=== PATIENT | male | born 1995 | race African-American/Black ===

== ENCOUNTER 2019-11-13 23:45 | Emergency (ER) | payer BC, SELFPAY ==
--- NOTE | ~2019-11-13 | XR_ITS ---
EXAMINATION: XR chest 2V DATE: 11/14/2019 00:19 INDICATION: Midline chest pain TECHNIQUE: PA and lateral views of the chest were obtained. COMPARISON: Chest radiograph dated 07/18/2016 FINDINGS: The lungs remain clear with no focal airspace opacities, pulmonary edema, pleural effusion or pneumot horax. The cardiomediastinal silhouette is normal. Visualized bones and soft tissues are unremarkable . IMPRESSION: 1. Normal chest radiograph. Reviewed, dictated and finalized at location A. IMPRESSION: 1. Normal chest radiograph.
[2019-11-13 23:49] VITALS: BP 159/89; PULSE 100; RESP 25; TEMP 37; O2SAT 100
--- NOTE | 2019-11-13 23:52 | ECG_ITS ---
Measurements Intervals [place] Rate: 85 P: 66 NV: 149 QRS: 73 QRSD: 83 T: 37 QT: 334 QTc: 397 Interpretive Statements SINUS RHYTHM VENTRICULAR PREMATURE COMPLEXES ABNORMAL ECG Electronically Signed On 11-14-2019 7:04:37 CDT by Skip Carpenter D.O.
[2019-11-13 23:56] VITALS: PULSE 82
[2019-11-14 00:13] LABS: Basophils Percent Auto 0.5 % (0.2-1.2); Eosinophils Absolute Auto 0.1 K/mm3 (0-0.3); Eosinophils Percent Auto 2.3 % (0-4.4); Hematocrit 45.9 % (42.0-52.0); Hemoglobin 15.3 g/dL (14.0-18.0); Immature Granulocyte Absolute 0.02 K/mm3 (0.00-0.031); Immature Granulocyte Percent A 0.3 % (0-0.5); Lymphocytes Percent Auto 41.9 % (18.3-44.2); Mean Corpuscular HGB Conc 33.3 g/dl (32-36); Mean Corpuscular Hemoglobin 29.1 pg (26-34); Mean Corpuscular Volume 87.3 fl (80-100); Mean Platelet Volume 12.1 fl (7.4-10.4); Monocytes Absolute Auto 0.5 K/mm3 (0.1-0.6); Monocytes Percent Auto 8.5 % (2.6-8.5); Neutrophils Absolute Auto 2.9 K/mm3 (1.3-6.7); Neutrophils Percent Auto 46.5 % (45.5-73.1); Platelet Count Result 237 k/mm3 (150-375); Red Blood Count 5.26 M/mm3 (4.6-6.20); Red Cell Distribution Width 13.4 % (11.5-14.5); White Blood Count 6.2 K/mm3 (4.5-10.0)
--- NOTE | 2019-11-14 00:22 | ED.CHESTPAIN ---
HPI - Chest Pain General Chief Complaint: Chest Pain Stated Complaint: CP Time Seen by Provider: 11/14/19 00:08 History of Present Illness HPI narrative: Patient presents via personal car for midsternal chest pain. Started today. He says he can feel extra beats. He denies reflux or asthma. He has had no wheezing or shortness of breath. He is in the [employer] and works out regularly. He said his chest hurts from working out. He does not smoke drink or do drugs, but he does dip tobacco. His surgeries include circumcision and oral surgery. He does not take any prescription medication He just finished college with a criminal justice degree. 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 And is part of the [employer]. MD complaint: chest pain Pertinent past history: other (No asthma or reflux.) Onset (ago): hour(s) Timing of current episode: episodic Prior episodes: No Onset: during rest Related Data Allergies Allergy/AdvReac Type Severity Reaction Status Date / Time No Known Allergies Allergy Unverified 08/29/17 20:46 Review of Systems Review of Systems: Narrative: CONSTITUTIONAL: Denies fever, chills, or sweats. EYES: Denies visual changes, redness, or discharge. ENT: Denies rhinorrhea, congestion, sore throat, or otalgia. CARDIOVASCULAR: He has chest pain, and palpitations, but not edema. RESPIRATORY: Denies cough or dyspnea. GASTROINTESTINAL: Denies abdominal pain, nausea, vomiting, or diarrhea. GENITOURINARY: Denies dysuria or hematuria. SKIN: Denies rash or itching. MUSCULOSKELETAL: Denies back pain, joint pain, or myalgia. NEUROLOGIC: Denies headache, numbness, or weakness. PSYCHIATRIC: Denies anxiety or depression. [facility] Past Medical History Medical History (Updated 11/14/19 @ 00:50 by Emani Bermudez MD) Chest pain Palpitations Surgical History Surgical History (Updated 11/14/19 @ 00:25 by Emani Bermudez MD) History of circumcision History of oral surgery Social History Social History (Updated 11/14/19 @ 00:25 by Emani Bermudez MD) Tobacco type: smokeless tobacco Alcohol intake: never Substance use: never Gender identity (if verbalized by the patient): Male Exam Narrative: Exam Narrative: GENERAL: Well-appearing, well-nourished, and in no acute distress. Charming and well muscled. HEAD: Normocephalic, atraumatic. EYES: PERRLA and EOMI. ENT: Nares clear, no rhinorrhea or epistaxis. Mucous membranes moist. NECK: Supple. CHEST: Clear to auscultation. No respiratory distress. Scant tenderness on palpitation at the sternal border. HEART: Regular rate and rhythm. No murmur heard. Normal peripheral pulses. ABDOMEN: Soft, nontender, nondistended, normal active bowel sounds. EXTREMITIES: Normal range of motion. No edema. SKIN: Warm, dry, no rash. NEURO: No focal deficits. Alert and oriented x3. PSYCH: Normal mood and affect. Course Reevaluation(s) Reevaluation #1: Give the patient a copy of his EKG with the premature supraventricular contractions. While in the room he had several pauses on the bulk gas specialist. He already has an appointment with a spiral binder that he does not know the name of. So I told him that if we do not find anything serious tonight I will refer him also to 1 of our spiral binder to see who can get in with first. He may need a Holter monitor or to see an electro fashion stylist. Told him to stop doing the dipping of the tobacco product. He was on supplements when he was working out but is no longer taking those. He does not take any allergy medicine. Date: 11/14/19 Time: 00:36 Vital Signs Vital signs: Vital Signs Temperature 98.6 F 11/13/19 23:49 Pulse Rate 100 11/13/19 23:49 Respiratory Rate 25 H 11/13/19 23:49 Blood Pressure 159/89 H 11/13/19 23:49 Pulse Oximetry 100 11/13/19 23:49 Temperature 98.6 F 11/13/19 23:49 Pulse Rate 82 11/13/19 23:56 Respiratory Rate 25 H 11/13/19 23:49 Blood Pressure 159/89 H 11/13/19 23:49 Pulse Oximetry 100
[2019-11-14 00:23] LABS: INR 0.9; Prothrombin Time 12.1 Seconds (11.1-14.7)
[2019-11-14 00:24] LABS: Partial Thromboplastin Time 25.9 SECONDS (22.3-36.8)
[2019-11-14 00:25] LABS: Blood Urea Nitrogen 11 mg/dL (9-20); Calcium 9.3 mg/dL (8.4-10.2); Carbon Dioxide 29 mmol/L (22-30); Chloride 102 mmol/L (98-107); Estimated CRCL calculation 97 ml/min; Estimated Glomerular Filt Rate > 60; Glucose 95 mg/dL (75-110); Potassium 3.9 mmol/L (3.4-5.0); Sodium 138 mmol/L (137-145)
[2019-11-14 00:36] LABS: Troponin I < 0.012 ng/mL (0.000-0.034)
[2019-11-14 00:55] VITALS: BP 144/84; PULSE 81; RESP 18; O2SAT 100
== END 2019-11-14 00:55 | disposition home or self-care (01) ==
LOC: ANHED 11-14 00:51
PROVIDERS: Emergency Provider Emergency Medicine; PCP Internal Medicine
DX: R00.2 Palpitations (principal); I49.3 Ventricular premature depolarization; F17.220 Nicotine dependence, chewing tobacco, uncomplicated
CPT/HCPCS: 36415; 71046; 80048; 84484; 85025; 85610; 85730; 93005; 99284

== ENCOUNTER 2022-04-27 23:27 | Emergency (ER) | payer OTHER, SELFPAY ==
--- NOTE | ~2022-04-27 | US_ITS ---
US scrotum doppler INDICATION: Right testicular pain TECHNIQUE: Testicular sonogram utilizing grayscale and color Doppler FINDINGS: There is a small right testicular cyst measuring 2 mm. No solid testicular masses. 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 The right testes measures 4.1 x 1.7 x 2.7 cm centimeters, and the left te stis measures 4.2 x 2.1 x 2.2 cm cm. There is a right epididymal cyst measuring 4 mm. There is normal Doppler signal in the testicles. The right and left epididymides appear normal. There is no varicocele or hydrocele. IMPRESSION: 1. Right testicular cyst measuring 2 mm. 2: Right epididymal cyst measuring 4 mm. 3: Testicular microlithiasis. Reviewed, dictated and finalized at location B. FORMER HELPER
[2022-04-27 23:33] VITALS: BP 140/75; PULSE 70; RESP 18; TEMP 36.4; O2SAT 100
--- NOTE | 2022-04-27 23:41 | ED.MALEGU ---
HPI - Male Genitourinary General Chief complaint: Urogenital-Male Stated complaint: Groin pain, start approx at noon Time Seen by Provider: 04/27/22 23:35 History of Present Illness HPI Narrative: Patient endorsing pain in his right groin, and testicle, with some associated nausea, started around noon when he stood up. No pain with urination, no hematuria, no back pain, no abdominal pain, no fevers/chills, he has had similar symptoms in the past but this is more intense. Currently 4 out of 10 in pain but when it is bad it can be sharp pain that goes up to 8 out of 10. Related Data Allergies Allergy/AdvReac Type Severity Reaction Status Date / Time No Known Allergies Allergy Verified 04/27/22 23:38 Review of Systems Review of Systems: CONST: No fever. HEENT: No sore throat C/V: No chest pain RESP: No cough GI: Reports nausea : No dysuria; R testicular pain M/S: No joint pain. SKIN: No rash. NEURO: [No headache or focal numbness or weakness] PSYCH: [No depression] [facility] Past Medical History Medical History Chest pain Palpitations Surgical History Surgical History History of circumcision History of oral surgery Social History Social History Tobacco type: smokeless tobacco Alcohol intake: never Substance use: never Gender identity (if verbalized by the patient): Male Exam Narrative: EXAMINATION OF ORGAN SYSTEMS/BODY AREAS: Constitutional: Vital signs per nursing GENERAL:[No acute distress, non-toxic appearing.] HEAD: Normal with no signs of head trauma. EYES: EOMI, conjunctiva normal ENT: Hearing grossly intact LUNGS: Nonlabored breathing. HEART: [Regular rate and rhythm] ABD: [Soft], [nontender to palpation], no tenderness in McBurney's region, no palpable hernia : Some tenderness to the right testicle EXT: Normal range of motion SKIN: [No rashes or lesions.] NEURO: [Alert and oriented x 3. No gross focal sensory or strength deficits.] PSYCH: Normal affect Course Vital Signs Vital signs: Vital Signs Temperature 97.5 F L 04/27/22 23:33 Pulse Rate 70 04/27/22 23:33 Respiratory Rate 18 04/27/22 23:33 Blood Pressure 140/75 04/27/22 23:33 Pulse Oximetry 100 04/27/22 23:33 Oxygen Delivery Room Air 04/27/22 23:33 Temperature 97.5 F L 04/27/22 23:33 Pulse Rate 58 L 04/28/22 03:14 Respiratory Rate 18 04/28/22 03:14 Blood Pressure 114/62 04/28/22 03:14 Pulse Oximetry 100 04/28/22 03:14 Oxygen Delivery Room Air 04/27/22 23:33 MDM - Male Genitourinary MDM Narrative Medical decision making narrative: 26-year-old male presenting with right testicular pain, vital signs stable, on exam he has soft, nontender abdomen, no palpable hernia, and some tenderness in the right scrotum. Differential includes hydrocele/varicocele, very low likelihood of torsion given his well appearance, also considered appendicitis but felt this is quite unlikely given the sudden onset of symptoms without any fevers or chills, or right lower quadrant tenderness. UA is negative. Ultrasound here does not show any signs of torsion. On re-evaluation patient resting comfortably, I have discussed results with him as well as the importance of follow-up and returning to the ER if his symptoms do not improve or if he had any worsening pain or nausea or fevers that he should come back immediately for further evaluation for appendicitis. Patient endorses agreement and understanding. Lab Data Labs: Lab Results 04/27/22 Range/Units 23:44 Urine Color Yellow (Yellow) Urine Appearance Clear (Clear) Urine pH 7.5 (5.0-9.0) Ur Specific [place] 1.020 (1.001-1.035) Urine Protein Negative (Negative) mg/dL Urine Glucose (UA) Negative (Negative) mg/dL Urine Ketones Negative (Negative) mg/dL Ur Blood (Man) Negative (Ne
[2022-04-27 23:51] LABS: Appearance Urine Clear (Clear); Bilirubin Urine Negative (Negative); Blood Urine Negative (Negative); Color Urine Yellow (Yellow); Glucose Urine UA Negative (Negative); Ketones Urine Negative (Negative); Leukocyte Esterase Ur Negative LEU/UL (Negative); Nitrate Urine Negative (Negative); Protein Urine Negative (Negative); Urobilinogen Urine 0.2 mg/dL (<2.0); pH Urine 7.5 (5.0-9.0)
[2022-04-27 23:58] LABS: Mucus Urine Rare /lpf; RBC Urine 0-2 /hpf (0-2); WBC Urine 0-3 /hpf
[2022-04-27 23:59] LABS: Add Urine Microscopic? NO
[2022-04-28 02:11] VITALS: BP 118/78; PULSE 60; RESP 15; O2SAT 100
[2022-04-28 03:14] VITALS: BP 114/62; PULSE 58; RESP 18; O2SAT 100
[2022-04-28] MEDS: ONDANSETRON HCL ODT 4 MG TABLET PO (04:22)
[2022-04-28] MEDS: KETOROLAC 30 MG/ML VIAL (*BKC) IM (04:22)
== END 2022-04-28 04:28 | disposition home or self-care (01) ==
PROVIDERS: Emergency Provider Emergency Medicine; PCP Internal Medicine
DX: R10.31 Right lower quadrant pain (principal); F17.220 Nicotine dependence, chewing tobacco, uncomplicated; N44.2 Benign cyst of testis; N50.3 Cyst of epididymis
CPT/HCPCS: 76870; 81003; 93976; 96372; 99284; A9270; J1885

== ENCOUNTER 2024-05-19 14:45 | Outpatient (RCR) | payer BC, SELFPAY ==
--- NOTE | 2024-02-25 11:36 | PTOPEVAL1 ---
Assessment and note entered by Connie Guthrie, PT Evaluation Information Assessment Status Evaluation Diagnosis Patellofemoral disorder right and left knee ICD-10 Condition Codes (PT) M25.561,Pain in left knee M25.562,R26.9,Weakness R53.1 Onset chronic Subjective Information Pt states has always been a bit of an issue since in high school. Pt states prior history of [place] in right knee. Feels that left knee started compensating. Pt reports in the last year notes hurts hurts to use his knees like bending, running, stairs. Has to go up and down stairs all day for work. Pt reports works out legs almost every day. One day will do that weight lifting with one leg muscle, then a cardio day, and a HIIT day, does burpees every day. Uses ice as needed when pain gets really bad but not proactively Reported Pain Level Pain Score 4,6: Self Report Assessment PT Clinical Summary Pt presents with history of bilat knee pain that he noticed in the past year has really effected his mobility and function. Pt demos abnormal alignment BLEs in standing, poor kinematics with fitness activities effecting strain on patellar tendon, weakness of hip stabilizers/glutes, decreased flexibility multiple muscles as well. Pt has been educated on findings, and provided initial information to begin addressing these deficits and inflammation. Pt will benefit from therapy to address deficits, and continue educating patient appropriate kinematics and techniques to resolve pain and issues. Plan of Care Interventions Electrical Stimulation,Hot Pack/Cold Pack,Manual Therapy,Neuro Re-education,Patient/Caregiver Educati,Therapeutic Activities,Therapeutic Exercise,Self-Care/Home Management,Ultrasound Other Interventions [facility] Indicated Yes Treatment Frequency and 1-2x weekly x 8 visits Duration These treatments will address the objective and functional deficits as defined above. The patient will be advanced safely and appropriately in order for the patient to progress towards his/her prior level of function. Additional exercises will be introduced and as well as a comprehensive home exercise program upon discharge, if needed, ?to ensure carryover of functional gains achieved in the clinic. This treatment plan has been reviewed and agreement upon by the patient.
--- NOTE | 2024-02-25 11:36 | OPREHPOC ---
Outpatient Therapy Plan of Care This is a Multidisciplinary Plan of Care that may contain components documented by all disciplines (PT, OT, and ST.) PT Problem 1 PT Problem #1 Knowledge Deficit PT Goal 1 Goal / Goal Update Pt will be independent in HEP Pt will verbalize understanding of diagnosis and prognosis Target Visit 4 PT Problem 2 PT Problem #2 Pain PT Goal 1 Goal / Goal Update Pt will report greatest pain level in last two weeks at 3/10 or less to improve ADLs and activities Target Visit 4 PT Goal 2 Goal / Goal Update Pt will report lowest pain rating at 0/10 to show improvement in overall discomfort and function Target Visit 8 PT Problem 3 PT Problem #3 Impaired Strength PT Goal 1 Goal / Goal Update Pt will demo 5/5 gluteus medius and ana strength bilat to provide support to knees with activities. Target Visit 8 PT Problem 4 PT Problem #4 Impaired Flexibility PT Goal 1 Goal / Goal Update Pt will demo only mild gastroc and soleous flexibility deficit to offload strain on knees with activities. Target Visit 8 PT Problem 5 PT Problem #5 Impaired Endurance PT Goal 1 Goal / Goal Update Pt will report tolerance of initial arch supports all day.
--- NOTE | 2024-03-31 12:47 | PCPTNOTE ---
Patient called cancel stating he had something come up.
--- NOTE | 2024-04-14 17:24 | PCPTNOTE ---
Patient cancelled today's appointment secondary to family emergency.
--- NOTE | 2024-04-28 13:59 | OPREHPOC ---
Outpatient Therapy Plan of Care This is a Multidisciplinary Plan of Care that may contain components documented by all disciplines (PT, OT, and ST.) PT Problem 1 PT Problem #1 Knowledge Deficit PT Goal 1 Goal / Goal Update Pt will be independent in HEP Pt will verbalize understanding of diagnosis and prognosis Target Visit 4 Progress Met PT Problem 2 PT Problem #2 Pain PT Goal 1 Goal / Goal Update Pt will report greatest pain level in last two weeks at 3/10 or less to improve ADLs and activities 04/28/24: progressing to 10 Target Visit 4 Progress Partially Met PT Goal 2 Goal / Goal Update Pt will report lowest pain rating at 0/10 to show improvement in overall discomfort and function 04/28/24: progressing to 12/15 Target Visit 8 Progress Partially Met PT Problem 3 PT Problem #3 Impaired Strength PT Goal 1 Goal / Goal Update Pt will demo 5/5 gluteus medius and ana strength bilat to provide support to knees with activities. 04/28/24: progressing 4/5 Target Visit 8 Progress Partially Met PT Problem 4 PT Problem #4 Impaired Flexibility PT Goal 1 Goal / Goal Update Pt will demo only mild gastroc and soleous flexibility deficit to offload strain on knees with activities. 04/28/24: progressing Target Visit 8 Progress Partially Met PT Problem 5 PT Problem #5 Impaired Endurance PT Goal 1 Goal / Goal Update Pt will report tolerance of initial arch supports all day. 04/28/24: progressing, can wear all day with increased pain Progress Partially Met
--- NOTE | 2024-04-28 13:59 | PTOPPROG ---
Assessment and note entered by Sarah Acosta, PT, DPT Evaluation Information Assessment Status Progress Diagnosis Patellofemoral disorder right and left knee ICD-10 Condition Codes (PT) M25.561,Pain in left knee M25.562,R26.9,Weakness R53.1 Onset chronic Subjective Information Pt received 1 treatment of dry needling last week and received significant benefits. He states this is the best he has felt since starting therapy. States his ankles feel more mobile and he has less resulting knee pain. He states he would like to continue with dry needling until he is pain free. Assessment PT Clinical Summary Pt has completed 7 visits of skilled therapy to treat his jillian knee pain. Pt reports decreased knee pain since starting therapy but still higher than expected. He demonstrates improved hip and knee strength and improved ankle ROM since starting therapy. He has gotten arch supports and is adjusting to these. He continues to lack foot and ankle ROM, hip strength, and proper movement mechanics. Continuation of skilled therapy services are indicated to address deficits, improve kinematics and techniques, to resolve pain , and to return to prior level of function. Plan of Care Interventions Electrical Stimulation,Hot Pack/Cold Pack,Manual Therapy,Neuro Re-education,Patient/Caregiver Educati,Therapeutic Activities,Therapeutic Exercise,Self-Care/Home Management,Ultrasound Other Interventions Taping, [facility] PT Services Indicated Yes Treatment Frequency and 1-2x weekly x 8 visits Duration These treatments will address the objective and functional deficits as defined above. The patient will be advanced safely and appropriately in order for the patient to progress towards his/her prior level of function. Additional exercises will be introduced and as well as a comprehensive home exercise program upon discharge, if needed, ?to ensure carryover of functional gains achieved in the clinic. This treatment plan has been reviewed and agreement upon by the patient.
--- NOTE | 2024-05-27 08:48 | PCPTNOTE ---
This treatment is being continued on visit number [id number] Please see documentation on both accounts to view progress. Completed interventions, outcomes, and problems have been marked as Inactive to facilitate the copying of the Care plan routine for recurring accounts.
== END 2024-05-25 23:59 | disposition home or self-care (01) ==
LOC: ANHPT 14:45
PROVIDERS: PCP Internal Medicine; Visit Provider Orthopaedic Surgery
DX: M22.2X1 Patellofemoral disorders, right knee (principal); M22.2X2 Patellofemoral disorders, left knee
CPT/HCPCS: 97110; 97140; 97161; 97530

== ENCOUNTER 2024-07-14 14:45 | Outpatient (RCR) | payer BC, SELFPAY ==
--- NOTE | 2024-05-27 08:49 | PCPTNOTE ---
This treatment is being continued from visit number [id number] Please see documentation on both accounts to view progress. Completed interventions, outcomes, and problems have been marked as Inactive to facilitate the copying of the Care plan routine for recurring accounts.
--- NOTE | 2024-06-23 15:29 | PCPTNOTE ---
Pt canceled appt today stating something came up.
--- NOTE | 2024-07-07 15:15 | PCPTNOTE ---
No call no show, reason unknown. [place]becca
== END 2024-08-31 23:59 | disposition home or self-care (01) ==
LOC: ANHPT 14:45
PROVIDERS: PCP Internal Medicine; Visit Provider Orthopaedic Surgery
DX: M22.2X1 Patellofemoral disorders, right knee (principal); M22.2X2 Patellofemoral disorders, left knee
CPT/HCPCS: 97014; 97110; 97140; G0283